=== PATIENT | male | born 1995 | race Caucasian/White ===

== ENCOUNTER 2021-05-17 15:38 | Outpatient (CLI) | payer BC ==
[2021-05-18 12:47] LABS: SARS-CoV-2 PCR by NAA Not Detected (NotDetected)
== END 2021-05-17 15:39 | disposition home or self-care (01) ==
LOC: CSHLAB 15:38
PROVIDERS: ATTEND Family Medicine
DX: Z20.822 Contact with and (suspected) exposure to COVID-19 (principal)
CPT/HCPCS: U0003; U0005

== ENCOUNTER 2023-04-23 07:38 | Outpatient (CLI) | payer BC ==
[2023-04-23] MEDS ORDERED: Iopamidol 300 61% 100 ML VIAL FS ONE (09:10)
== END 2023-04-23 07:39 | disposition home or self-care (01) ==
LOC: CSHCT 07:38
PROVIDERS: ATTEND Specialist
DX: R49.0 Dysphonia (principal)
CPT/HCPCS: 70491; Q9967

== ENCOUNTER 2025-07-21 14:32 | Outpatient (CLI) | payer OTHER | END 2025-07-21 14:33 | disposition home or self-care (01) | LOC: CSHCT 14:32 | PROVIDERS: ATTEND Internal Medicine | DX: R07.9 Chest pain, unspecified (principal); N20.0 Calculus of kidney | CPT/HCPCS: 71250 ==